=== PATIENT | female | born 2000 | race Two or more races ===

== ENCOUNTER 2022-04-08 20:02 | Emergency (ER) | payer MEDICAID ==
[~2022-04-08] VITALS: Ht 149.9 cm; Wt 81.8 kg
[2022-04-08 20:30] VITALS: BP 116/82
[2022-04-08 22:43] LABS: Urine Bacteria FEW /hpf (None Seen); Urine Blood 2+ /uL (Negative); Urine Mucus FEW (None Seen); Urine Specific Gravity 1.036 (1.001-1.035); Urine WBC 5 /hpf (0 - 5)
== END 2022-04-09 01:09 | disposition left against medical advice (07) ==
LOC: ER 20:02
DX: R10.30 Lower abdominal pain, unspecified (principal); R11.2 Nausea with vomiting, unspecified; R19.7 Diarrhea, unspecified; R53.1 Weakness; Z53.21 Procedure and treatment not carried out due to patient leaving prior to being seen by health care provider
CPT/HCPCS: 81001

== ENCOUNTER 2023-09-03 14:05 | Emergency (ER) | payer MEDICAID ==
[~2023-09-03] VITALS: Ht 149.9 cm; Wt 94.3 kg
[2023-09-03] MEDS ORDERED: IBUP-1454 PO (14:38)
[2023-09-03 15:06] VITALS: BP 118/64; PULSE 20; RESP 20; TEMP 98.4; O2SAT 96
== END 2023-09-03 15:08 | disposition home or self-care (01) ==
LOC: ER 14:05
DX: M65.88 Other synovitis and tenosynovitis, other site (principal)